=== PATIENT | female | born 1970 | race American Indian/Alaskan Native ===

== ENCOUNTER 2020-09-29 23:51 | Emergency (ER) | payer SELFPAY ==
[2020-09-30] MEDS ORDERED: dexAMETHasone 20 MG/5 ML VIAL IM ONE (00:14)
[2020-09-30] MEDS ORDERED: KETOROLAC 30 MG/1 ML INJ IM ONE (00:14)
[2020-09-30] MEDS ORDERED: ACETAMINOPHEN 500 MG TAB PO ONE (00:16)
--- NOTE | 2020-09-30 00:30 | Emergency Department Report ---
ED Neck Pain/Injury HPI - General Chief Complaint: Neck Pain/Injury Stated Complaint: NECK PAIN X 4 DAYS Mode of arrival: Ambulatory Limitations: No Limitations - History of Present Illness Initial Comments: Patient is a 49-year-old -[place] female with history of hypertension and [id number] diabetes who presents to the ED with complaint of acute onset persistent severe nontraumatic right lateral neck pain for the last 24 hours after waking up from sleep. Patient states that she sleeps on several pillows every night and that 24 hours ago she woke up with persistent right lateral cervical muscle pain which has continued to get worse especially in the last 12 hours. Patient states that she has taken up to 2 muscle relaxants, Robaxin 750 mg twice the last time which was 2 hours prior to arrival in the ED. The patient states that this medicine has somehow helped with the pain but that the pain is still constant and persistent. Patient denies fall, traumatic injury, chest pain, shortness of breath, back pain, nausea and vomiting, change in vision, headache, dizziness, syncope, heavy lifting, diaphoresis, numbness and tingling or weakness of upper extremities bilaterally, fever and chills or cough. MD Complaint: neck pain -: Sudden, hour(s) (24) Place: home Radiation: right lateral, right shoulder Severity: severe, constant Severity scale (0 -10): 8 Quality: sharp, aching Consistency: constant Improves With: none Worsens With: movement of extremity, movement of neck Context: unknown, other (spontaneous) Associated Symptoms: none. denies: headache, fever, numbness, tingling, weakness, vertigo, difficulty walking, swollen glands, difficulty swallowing, nausea, vomiting Treatments Prior to Arrival: prescription pain med (Robaxin 750mg po x 1) - Related Data Home Medications Medication Instructions Recorded Confirmed Last Taken glipiZIDE [Glipizide Xl] 10 mg PO BID 09/03/13 09/03/13 09/02/13 lisinopriL [Zestril] 10 mg PO QDAY 09/03/13 09/03/13 09/02/13 Previous Rx's Medication Instructions Recorded Last Taken Type Prednisone 20 mg PO QDAY #5 tablet 09/03/13 Unknown Rx Ibuprofen [Motrin 800 MG tab] 800 mg PO Q8H PRN #30 tablet 09/30/20 Unknown Rx methOCARBAMOL [Robaxin TAB] 750 mg PO Q8H PRN #30 tablet 09/30/20 Unknown Rx traMADoL [Ultram] 50 mg PO Q6HR PRN #12 tablet 09/30/20 Unknown Rx Allergies Allergy/AdvReac Type Severity Reaction Status Date / Time acetaminophen [From Percocet] Allergy Hives Verified 09/03/13 09:13 oxycodone HCl [From Percocet] Allergy Hives Verified 09/03/13 09:13 ED Review of Systems ROS: Stated complaint: NECK PAIN X 4 DAYS Other details as noted in HPI Constitutional: denies: chills, fever Eyes: denies: eye pain, eye discharge, vision change ENT: denies: ear pain, throat pain Respiratory: denies: cough, shortness of breath, wheezing Cardiovascular: denies: chest pain, palpitations Endocrine: no symptoms reported Gastrointestinal: denies: abdominal pain, nausea, diarrhea Genitourinary: denies: urgency, dysuria, discharge Musculoskeletal: arthralgia (Right lateral neck pain). denies: back pain, joint swelling Skin: denies: rash, lesions Neurological: denies: headache, weakness, paresthesias Psychiatric: denies: anxiety, depression Hematological/Lymphatic: denies: easy bleeding, easy bruising ED Past Medical Hx - Past Medical History Previous Medical History?: Yes Hx Hypertension: Yes Hx Diabetes: Yes - Surgical History Past Surgical History?: Yes Additional Surgical History: hysterectomy. right ankle sx. r arm sx. tubal ligation - Social History Smoking Status: Never Smoker Substance Use Type: None - Medications Home Medications: Home Medications Medication Instructions Recorded Confirmed Last Taken Type Prednisone 20 mg PO QDAY #5 tablet 09/03/13 Unknown Rx glipiZIDE [Glipizide Xl] 10 mg PO BID 09/03/13 09/03/13 09/02/13 History lisinopriL [Zestril] 10 mg PO QDAY 09/03/13 09/03/13 09/02/13 History Ibuprofen [Motrin 800 MG tab] 800 mg PO Q8H PRN #30 tablet 09/30/20 Unknown Rx methOCARBAMOL [Robaxin TAB] 750 mg PO Q8H PRN #30 tablet 09/30/20 Unknown Rx traMADoL [Ultram] 50 mg PO Q6HR PRN #12 tablet 09/30/20 Unknown Rx ED Physical Exam - General Limitations: No Limitations General appearance: alert, in no apparent distress - Head Head exam: Present: atraumatic, normocephalic, normal inspection - Eye Eye exam: Present: normal appearance, PERRL, EOMI Pupils: Present: normal accommodation - ENT ENT exam: Present: normal exam, normal orophraynx, mucous membranes moist, TM's normal bilaterally, normal external ear exam - Neck Neck exam: Present: normal inspection, tenderness (Palpable right lateral cervical paraspinal musculoskeletal tenderness with limited range of motion due to pain). Absent: full ROM (Limited range of motion of right lateral cervical muscle due to pain), lymphadenopathy - Respiratory Respiratory exam: Present: normal lung sounds bilaterally. Absent: respiratory distress, wheezes, rales, rhonchi, stridor, chest wall tenderness, accessory muscle use, prolonged expiratory - Cardiovascular Cardiovascular Exam: Present: normal rhythm, tachycardia, normal heart sounds. Absent: systolic murmur, diastolic murmur, rubs, gallop - GI/Abdominal GI/Abdominal exam: Present: soft, normal bowel sounds. Absent: tenderness, guarding, rebound, hyperactive bowel sounds, hypoactive bowel sounds, organomegaly, mass - Extremities Exam Extremities exam: Present: normal inspection, full ROM, normal capillary refill - Back Exam Back exam: Present: normal inspection, full ROM. Absent: tenderness, CVA tenderness (R), CVA tenderness (L), muscle spasm, paraspinal tenderness, v ertebral tenderness - Neurological Exam Neurological exam: Present: alert, oriented X3, CN II-XII intact, normal gait, reflexes normal - Psychiatric Psychiatric exam: Present: normal affect, normal mood - Skin Skin exam: Present: warm, dry, intact, normal color. Absent: rash ED Course Vital Signs 09/29/20 23:54 Temperature 99.1 F Pulse Rate 115 H Respiratory 18 Rate Blood Pressure 168/105 O2 Sat by Pulse 100 Oximetry ED Medical Decision Making - Medical Decision Making This is a 49-year-old -[place] female with history of hypertension and [id number] diabetes who presents to the ED with complaint of acute onset persistent severe nontraumatic right lateral neck pain for the last 24 hours after waking up from sleep. Patient states that she sleeps on several pillows every night and that 24 hours ago she woke up with persistent right lateral cervical muscle pain which has continued to get worse especially in the last 12 hours. Patient states that she has taken up to 2 muscle relaxants, Robaxin 750 mg twice the last time which was 2 hours prior to arrival in the ED. The patient states that this medicine has somehow helped with the pain but that the pain is still constant and persistent. In the ED, patient is alert and oriented x3 and is not in any distress but anxious, tachycardic and appears to be in pain. Patient was treated for pain in the ED based on the physical exam findings. On reevaluation, patient's pain is well controlled medications. Patient's tachycardia also resolved and patient was discharged home on pain medications and muscle relaxant prescriptions and was advised to follow-up with her primary care physician in 7 to 10 days for reevaluation or return to the ED immediately if her symptoms get worse. - Differential Diagnosis Cervical sprain; cervical spasm; cervical strain; torticollis; Critical care attestation.: If time is entered above; I have spent that time in minutes in the direct care of this critically ill patient, excluding procedure time. ED Disposition Clinical Impression: Cervical paraspinal muscle spasm, Right torticollis, Strain of cervical portion of right trapezius muscle Disposition: DC-01 TO HOME OR SELFCARE Is pt being admited?: No Does the pt Need Aspirin: No Condition: Stable Instructions: Muscle Cramps and Spasms, [id number], Cervical Strain and Sprain Rehab-SportsMed, Acute Torticollis, Adult Additional Instructions: Take medications with food, drink plenty of fluids and follow-up with your primary care physician in 7 to 10 days for reevaluation. Return to the ED immediately if symptoms get worse. Prescriptions: Ibuprofen [Motrin 800 MG tab] 800 mg PO Q8H PRN #30 tablet PRN Reason: Pain methOCARBAMOL [Robaxin TAB] 750 mg PO Q8H PRN #30 tablet PRN Reason: Muscle Spasm traMADoL [Ultram] 50 mg PO Q6HR PRN #12 tablet PRN Reason: Pain Referrals: [facility] [Provider Group] - 3-5 Days Time of Disposition: 00:48 Print Language: [id number]
[2020-09-30 01:05] VITALS: BP 124/88
== END 2020-09-30 01:07 | disposition home or self-care (01) ==
LOC: ED 23:51
DX: S16.1XXA Strain of muscle, fascia and tendon at neck level, initial encounter (principal); M43.6 Torticollis; M62.838 Other muscle spasm; I10 Essential (primary) hypertension; E11.9 Type 2 diabetes mellitus without complications; Z88.8 Allergy status to other drugs, medicaments and biological substances; Z79.899 Other long term (current) drug therapy; Z90.710 Acquired absence of both cervix and uterus; Z98.51 Tubal ligation status; X58.XXXA Exposure to other specified factors, initial encounter; Y93.89 Activity, other specified; Y92.099 Unspecified place in other non-institutional residence as the place of occurrence of the external cause; Y99.8 Other external cause status
CPT/HCPCS: 96372; 99282; J1100; J1885